=== PATIENT | female | born 1960 | race Caucasian/White ===

== ENCOUNTER 2025-01-09 14:39 | Emergency (ER) | payer MEDICARE ==
[2025-01-09] MEDS ORDERED: Aspirin Chewable 81 MG TAB ONE (15:22)
[2025-01-09] MEDS ORDERED: Nitroglycerin 2% Ointment 1 INCH/1 GM Packet ONE (15:22)
[2025-01-09 15:39] LABS: #Basophils Less than 0.03 10x3/uL (0.0-0.2); #Eosinophils 0.07 10x3/uL (0.0-0.5); #Monocytes 0.69 10x3/uL (0.0-1.1); #Neutrophils 3.40 10x3/uL (1.5-8.4); %Basophils 0.3 % (0.0-2.0); %Eosinophils 1.2 % (0.0-6.0); %Lymphocytes 29.1 % (18.0-47.0); %Monocytes 11.7 % (0.0-10.0); %Neutrophils 57.5 % (40.0-75.0); Hematocrit 39.2 % (34.9-44.5); Hemoglobin 12.9 g/dL (12.0-15.5); Mean Corpuscular Hemoglobin 31.7 pg (27.0-33.0); Mean Corpuscular Volume 96.3 fL (81.6-98.3); Platelet Count 295 10x3/uL (150-450); Red Blood Cell (RBC) Count 4.07 10x6/uL (3.90-5.03); White Blood Cell (WBC) Count 5.91 10x3/uL (3.5-10.5)
[2025-01-09 15:48] LABS: ALT (SGPT) 23 U/L (Less than 34); AST (SGOT) 25 U/L (11-34); Albumin 4.5 g/dL (3.1-4.5); Alkaline Phosphatase 79 U/L (40-110); Anion Gap 13 mmol/L (10-20); BUN (Urea Nitrogen) 16 mg/dL (9.8-20.1); Bilirubin, Total 1.3 mg/dL (0.3-1.2); Calc. Creatinine Clearance 0 mL/min (70-130); Calcium 9.3 mg/dL (7.8-10.44); Carbon Dioxide 26 mmol/L (23-31); Chloride 104 mmol/L (98-107); Globulin 3.7 g/dL (2.4-3.5); Glucose 87 mg/dL (80-115); Potassium 3.8 mmol/L (3.5-5.1); Sodium 139 mmol/L (136-145)
[2025-01-09 15:52] LABS: Troponin I Less than 0.010 ng/mL (< 0.028)
== END 2025-01-09 16:57 | disposition home or self-care (01) ==
LOC: CSHERS 14:39
DX: R20.2 Paresthesia of skin (principal); M54.12 Radiculopathy, cervical region; I10 Essential (primary) hypertension; Z79.899 Other long term (current) drug therapy
CPT/HCPCS: 71045; 72125; 80053; 83880; 84484; 85025; 85379; 93005; J2060; 36415; 96374

== ENCOUNTER 2025-01-13 14:33 | Outpatient (CLI) | payer MEDICARE | END 2025-01-13 14:34 | disposition home or self-care (01) | LOC: CSHULT 14:33 | PROVIDERS: ATTEND Family Medicine | DX: I10 Essential (primary) hypertension (principal); R00.1 Bradycardia, unspecified; R53.83 Other fatigue; I34.0 Nonrheumatic mitral (valve) insufficiency | CPT/HCPCS: 93306 ==

== ENCOUNTER 2025-02-22 13:06 | Outpatient (CLI) | payer OTHER | END 2025-02-22 13:07 | disposition home or self-care (01) | LOC: CSHCT 13:06 | PROVIDERS: ATTEND Nurse Practitioner Family | DX: R07.89 Other chest pain (principal); R91.8 Other nonspecific abnormal finding of lung field; N20.0 Calculus of kidney; I25.10 Atherosclerotic heart disease of native coronary artery without angina pectoris; I25.84 Coronary atherosclerosis due to calcified coronary lesion | CPT/HCPCS: 75571 ==